=== PATIENT | female | born 1955 | race Caucasian/White ===

== ENCOUNTER → 2023-12-14 08:02 | Outpatient (REF) | payer MEDICARE, OTHER, SELFPAY | LOC: HWRAD 08:02 | PROVIDERS: ATTENDING PHYSICIAN Internal Medicine Geriatric Medicine | DX: S80.9 Unspecified superficial injury of knee and lower leg (principal) | CPT/HCPCS: 73560 ==

== ENCOUNTER → 2024-03-17 08:02 | Outpatient (REF) | payer MEDICARE, OTHER, SELFPAY | LOC: RAD 08:02 | PROVIDERS: ATTENDING PHYSICIAN Internal Medicine Geriatric Medicine | DX: I82.441 Acute embolism and thrombosis of right tibial vein (principal) | CPT/HCPCS: 93971 ==

== ENCOUNTER → 2024-08-12 09:28 | Outpatient (REF) | payer MEDICARE, OTHER, SELFPAY | LOC: WDC 09:28 | PROVIDERS: ATTENDING PHYSICIAN Internal Medicine Geriatric Medicine | DX: N63.20 Unspecified lump in the left breast, unspecified quadrant (principal); N63.21 Unspecified lump in the left breast, upper outer quadrant | CPT/HCPCS: 76642; 77062; 77066 ==